=== PATIENT | female | born 1985 | race Caucasian/White ===

== ENCOUNTER 2016-12-11 06:15 | Inpatient (IN) | payer BC ==
[2016-12-11] MEDS ORDERED: METHYLERGONOVINE 0.2 MG/ML 1 ML AMP IM PRN (06:46)
[2016-12-11] MEDS ORDERED: OXYTOCIN 10 UNIT/ML 1 ML VIAL IM PRN (06:46)
[2016-12-11] MEDS ORDERED: LIDOCAINE 1% (PF) 10 MG/ML (30 ML SDV) SQ PRN (06:46)
[2016-12-11] MEDS ORDERED: TERBUTALINE 1 MG/ML VIAL SQ PRN (06:46)
[2016-12-11] MEDS ORDERED: CARBOPROST TROMETHAMINE 250 MCG/ML 1 ML AMP IM PRN (06:46)
[2016-12-11 07:00] LABS: Basophils # (A) 0.1 k/uL (0-0.2); Basophils % (A) 0 %; CH 29.7; CHCM 34.4; Eosinophils # (A) 0.2 k/uL (0-0.7); Eosinophils % (A) 1 %; HCT 36.1 % (34.0-46.0); HDW 3.08; HGB 12.3 gm/dL (11.4-16.0); Luc # (Auto) 0.22; Luc % (Auto) 2; Lymphocytes # (A) 1.6 k/uL (1.0-4.8); Lymphocytes % (A) 13 %; MCH 29.6 pg (25.0-35.0); MCHC 34.1 g/dL (31.0-37.0); MCV 86.7 fL (80.0-100.0); Mean Platelet Volume 10.2; Monocytes # (A) 0.6 k/uL (0-1.0); Monocytes % (A) 4 %; Neutrophils # (A) 10.2 k/uL (1.3-7.7); Neutrophils % (A) 80 %; RBC 4.17 m/uL (3.80-5.40); RDW 15.2 % (11.5-15.5); WBC 12.8 k/uL (3.8-10.6); WBC (Perox) 13.26
[2016-12-11] MEDS ORDERED: OXYTOCIN 20 UNITS/1000 ML NS 1,000 ML IV SCH (07:00)
[2016-12-11] MEDS: LACTATED RINGERS 1,000 ML IV SCH ×2 (07:03→15:11)
[2016-12-11] MEDS ORDERED: BUTORPHANOL 1 MG/ML 1 ML VIAL IV PRN (07:30)
--- NOTE | 2016-12-11 07:35 | P.HPOB ---
History of Present Illness H&P Date: 12/11/16 Chief Complaint: 39-0/7 weeks, previous section, induction The patient is a 31-year-old 4 para 2011 admitted at 39-0/7 weeks as established by last menstrual period and confirmed by 19 week ultrasound. She is admitted for elective induction of labor with a very favorable cervix. She carries a history of a previous section and subsequent successful vaginal after section and has requested trial for this as well. She does understand the risks and complications. Her was otherwise uncomplicated. 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 Group B strep status is negative as well. Obstetrical history 4 para 2011 with 139 week section for an abnormal 9 pound baby. She was supposedly successful at a vaginal trial of labor. She additionally had one early elective interruption of . Current statistics are listed in history present illness. EDC of was established by last menstrual period and confirmed by 19 week ultrasound. Laboratory workup demonstrates a blood type of B+ with a negative antibody screen. Rubella status is immune. The remainder of the laboratory workup was within normal limits. One hour Glucola was normal and group B strep status is negative. Gynecologic history is unremarkable with no history of any infections to include STDs. Review of Systems Review of systems is confined to history of present illness. Past Medical History Past Medical History: No Reported History Additional Past Medical History / Comment(s): Obstetric history: Primary low transverse section 2012 for failure to progress in the second stage, occiput posterior, 8 lbs. 10 oz. female infant. History of Any Multi-Drug Resistant Organisms: None Reported Additional Past Surgical History / Comment(s): heart surgery: childhood Past Anesthesia/Blood Transfusion Reactions: No Reported Reaction Past Psychological History: No Psychological Hx Reported Smoking Status: Never smoker - Past Family History Father Family Medical History: No Reported History Medications and Allergies Home Medications Medication Instructions Recorded Confirmed Type Pnv,Calcium 72/Iron/Folic Acid 1 tab PO DAILY 11/11/14 12/11/16 History [Preplus Ca-Fe 27 mg-FA 1 mg Tb] Allergies Allergy/AdvReac Type Severity Reaction Status Date / Time No Known Allergies Allergy Verified 11/11/14 03:55 Exam - Vital Signs Vital signs: Intake and Output 12/10/16 12/11/16 12/11/16 22:59 06:59 14:59 Other: Weight 81.193 kg In general, this is a well-developed, well-nourished white female in no acute distress. Her heart has a regular rhythm and rate without murmur. Her lungs are clear to auscultation bilaterally in all lilly. Her abdomen is gravid, nondistended, has normal active bowel sounds, is soft, nontender, without any palpable masses aside from uterine fundus. Her extremities are without any cyanosis, clubbing, or significant edema and are nontender to palpation bilaterally. Digital cervical examination demonstrated cervix to 3-4 cm dilated , approximately 90% effaced, the vertex in presentation at -1-2 station. Artificial rupture of membranes is carried out demonstrating clear fluid. Results Result Diagrams: 12/11/16 06:30 Abnormal Lab Results - Last 24 Hours (Table) 12/11/16 Range/Units 06:30 WBC 12.8 H (3.8-10.6) k/uL Neutrophils # 10.2 H (1.3-7.7) k/uL Assessment and Plan (1) Previous section Status: Acute (2) Term Status: Acute Plan: The patient is admitted for what amounts to an elective induction of labor. She does carry a history of previous section but with a successful following that delivery. She has requested trial for this as well. The risks and complications of vaginal after section were thoroughly discussed and she has signed consent to that effect in the office to include the risk for uterine rupture an emergency section. She has had Pitocin augmentation started and undergone artificial rupture of membranes. She will continue to have very close maternal and surveillance and expectant management will be practiced. She is a good candidate for either IV or epidural analgesia, whichever she may choose.
[2016-12-11 07:51] VITALS: BMI 32.5
[2016-12-11] MEDS ORDERED: Acetaminophen-Codeine 300-30mg TAB PO PRN ×2 (11:28)
[2016-12-11] MEDS ORDERED: HYDROCORTISONE 2.5% RECTAL CREAM 30 GM TUBE RECTAL PRN (11:28)
[2016-12-11] MEDS ORDERED: WITCH HAZEL 1 EACH MED..PAD TOPICAL PRN (11:28)
[2016-12-11] MEDS ORDERED: diphenhydrAMINE 50 MG/ML 1 ML VIAL IVP PRN ×2 (11:28)
[2016-12-11] MEDS ORDERED: diphenhydrAMINE 50 MG CAP PO PRN (11:28)
[2016-12-11] MEDS ORDERED: SIMETHICONE 80 MG CHEWABLE PO PRN (11:28)
[2016-12-11] MEDS ORDERED: LANOLIN CREAM 5 GM TUBE TOPICAL PRN (11:28)
[2016-12-11] MEDS ORDERED: diphenhydrAMINE 25 MG CAP PO PRN (11:28)
[2016-12-11] MEDS ORDERED: ACETAMINOPHEN TAB 325 MG TAB PO PRN (11:28)
[2016-12-11] MEDS ORDERED: ZOLPIDEM 5 MG TAB PO PRN (11:28)
[2016-12-11] MEDS ORDERED: BENZOCAINE SPRAY 57GM TOPICAL PRN (11:28)
--- NOTE | 2016-12-11 11:32 | P.PROBDLV ---
Vaginal Delivery Note - . Vaginal Delivery Note: The patient is a 31-year-old 4 para 2011 admitted at 39-0/7 weeks by good dating parameters. She is admitted for elective induction of labor and vaginal trial of labor after previous section having had one previous successful in the past. On admission, all signs reassuring. Her has been uncomplicated and group B strep status is negative. On labor and delivery, she had Pitocin augmentation started and underwent artificial rupture of membranes for clear fluid. She made very rapid progress through the latent and active phase of labor to complete and 0 station. She pushed over the course of 5-6 contractions to a normal spontaneous vaginal delivery, successful , of a viable 9 lbs. 9 oz. baby girl with Apgars of 9 at 1 minute and 9 at 5 minutes delivered in the direct occiput anterior position. The placenta was delivered spontaneously, intact, and grossly normal with a grossly normal, marginally inserted three-vessel cord. A small second- degree laceration was noted just right of midline, likely over the site of a previous laceration, which was repaired in standard fashion using 3-0 chromic catgut without difficulty. Estimated blood loss for the case was approximately 200 mL. There were no complications. All sponge, instrument, and needle counts were correct. Both mother and are resting comfortably in recovery.
[2016-12-11] MEDS: IBUPROFEN 600 MG TAB PO PRN ×2 (12:53→20:21)
[2016-12-11] MEDS: SENNOSIDES-DOCUSATE SODIUM 1 EACH TAB PO SCH (20:21)
[2016-12-12 00:33] VITALS: RESP 16
[2016-12-12] MEDS: SENNOSIDES-DOCUSATE SODIUM 1 EACH TAB PO SCH (07:43)
[2016-12-12] MEDS: IBUPROFEN 600 MG TAB PO PRN (07:44)
[2016-12-12 08:33] VITALS: BP 125/79; PULSE 74; TEMP 97.5
--- NOTE | 2016-12-12 11:00 | P.DS ---
Providers Date of admission: 12/11/16 06:27 Expected date of discharge: 12/12/16 Attending physician: Austen Tate Primary care physician: Dakota Michaud - Discharge Diagnosis(es) (1) Previous section Current Visit: Yes Status: Acute (2) Term Current Visit: Yes Status: Acute (3) Vaginal delivery following previous caesarean section Current Visit: Yes Status: Acute Hospital Course: The patient is a 31-year-old 4 para 2011 admitted at 39-0/7 weeks by good dating parameters perches admitted for elective induction with a very favorable cervix. She has a history of a previous section in her first followed by a successful vaginal after section in her second. She has requested vaginal trial of labor for this . As result, she had Pitocin started and underwent artificial rupture of membranes. She made rapid progress to the active phase of labor to complete and then pushed fairly quickly to a normal spontaneous vaginal delivery of a viable 9 lbs. 9 oz. baby girl, successful , with Apgars of 9 at 1 minute and 9 at 5 minutes. Her post course was unremarkable with vital signs remaining stable and her temperature was afebrile throughout. She was deemed stable for discharge by day #1 was discharged home to follow-up in the office in 6 weeks' time routinely. Discharge instructions included calling for any significantly increased bleeding or foul-smelling lochia, significantly increased fever abdominal pain, perineal complaints, breast complaints, or anything else that concerned her. She was additionally instructed to have nothing in the vagina for at least 6 weeks time to include intercourse. She understood her instructions and agrees to follow up as noted above. Maternal blood type is B+ and rubella status is immune. Procedures: #1. Pitocin induction #2. Artificial rupture of membranes #3. Normal spontaneous vaginal delivery, successful #4. Repair of perineal laceration Patient Condition at Discharge: Good Plan - Discharge Summary New Discharge Prescriptions: No Action Pnv,Calcium 72/Iron/Folic Acid [Preplus Ca-Fe 27 mg-FA 1 mg Tb] 1 tab PO DAILY Fexofenadine HCl [Viola Allergy] 60 mg PO DAILY Discharge Medication List Pnv,Calcium 72/Iron/Folic Acid [Preplus Ca-Fe 27 mg-FA 1 mg Tb] 1 tab PO DAILY 11/11/14 [History] Fexofenadine HCl [Viola Allergy] 60 mg PO DAILY 12/11/16 [History] Follow up Appointment(s)/Referral(s): Austen Tate MD [STAFF PHYSICIAN] - 6 Weeks Discharge Disposition: HOME SELF-CARE
== END 2016-12-12 12:30 | disposition home or self-care (01) | DRG 775 ==
LOC: 4FBP 06:27
PROVIDERS: ADMIT Obstetrics & Gynecology; ATTEND Obstetrics & Gynecology
PROC: 10E0XZZ Delivery of Products of Conception, External Approach (ICD-10-PCS; principal; 2016-12-11)
PROC: 0KQM0ZZ Repair Perineum Muscle, Open Approach (ICD-10-PCS; 2016-12-11)
PROC: 00HU33Z Insertion of Infusion Device into Spinal Canal, Percutaneous Approach (ICD-10-PCS; 2016-12-11)
PROC: 3E0R3CZ (ICD-10-PCS; 2016-12-11)
DX: O34.211 Maternal care for low transverse scar from previous cesarean delivery (principal); O70.1 Second degree perineal laceration during delivery; Z37.0 Single live birth; Z3A.39 39 weeks gestation of pregnancy; Z79.899 Other long term (current) drug therapy
CPT/HCPCS: 85025; 86850; 86900; 86901; 88307

== ENCOUNTER → 2020-11-01 | Outpatient (CLI) | payer BC ==
--- NOTE | 2020-11-02 11:52 | ECHOF ---
Referral Reason:R01.1 Heart murmur MEASUREMENTS -------- HEIGHT: 157.5 cm WEIGHT: 63.5 kg BP: 110/76 RVIDd: 3.1 cm (< 3.3) IVSd: 1.0 cm (0.6 - 1.1) LVIDd: 4.4 cm (3.9 - 5.3) LVPWd: 0.9 cm (0.6 - 1.1) IVSs: 1.6 cm LVIDs: 2.4 cm LVPWs: 1.3 cm LA Diam: 3.3 cm (2.7 - 3.8) LAESV Index (A-L): 24.66 ml/m Ao Diam: 2.6 cm (2.0 - 3.7) AV Cusp: 2.0 cm (1.5 - 2.6) MV EXCURSION: 19.454 mm (> 18.000) MV EF SLOPE: 110 mm/s (70 - 150) EPSS: 0.2 cm MV E Royce: 1.34 m/s MV DecT: 243 ms MV A Royce: 0.98 m/s MV E/A Ratio: 1.38 AV maxP.02 mmHg AV meanP.75 mmHg RAP: 5.00 mmHg RVSP: 32.38 mmHg FINDINGS -------- Sinus rhythm. This was a technically good study. The left ventricular size is normal. Left ventricular wall thickness is normal. Overall left vent ricular systolic function is normal with, an EF between 60 - 65 %. The right ventricle is mildly enlarged. Normal LA size by volume 22+/-6 ml/m2. The right atrium is normal in size. The atrial septal defect shunts from left to right. There is a moderate secundum ASD measuring appr oximately 1.2cm. Recommend DEANNE to further evaluate if clinically indicated. The aortic valve is bicuspid. There is mild aortic valve sclerosis. Peak/mean gradient across the Aortic Valve is 59.02mmHg / 31.75mmHg. There is moderate aortic stenosis by doppler however appear s to be only mild by planimetry with only mild aortic valve sclerosis. May conisder DEANNE if clinicall y indicated. The mitral valve leaflets are mildly thickened. There is trace to mild mitral regurgitation. Mild tricuspid regurgitation present. Right ventricular systolic pressure is normal at < 35 mmHg. Trace/mild (physiologic) pulmonic regurgitation. The aortic root size is normal. There is increased doppler velocity of the descending aorta in this patient with a known history of aortic coarctation repair. Recommend CTA if reoccurence of coarctat ion clinical concern. Normal inferior vena cava with normal inspiratory collapse consistent with estimated right atrial pre ssure of 5 mmHg. There is no pericardial effusion. CONCLUSIONS -------- 1. The left ventricular size is normal. 2. Left ventricular wall thickness is normal. 3. Overall left ventricular systolic function is normal with, an EF between 60 - 65 %. 4. The right ventricle is mildly enlarged. 5. The atrial septal defect shunts from left to right. 6. There is a moderate secundum ASD measuring approximately 1.2cm. Recommend DEANNE to further evaluate if clinically indicated. 7. The aortic valve is bicuspid. 8. There is mild aortic valve sclerosis. 9. Peak/mean gradient across the Aortic Valve is 59.02mmHg / 31.75mmHg. 10. There is moderate aortic stenosis by doppler however appears to be only mild by planimetry with o nly mild aortic valve sclerosis. May conisder DEANNE if clinically indicated. 11. The mitral valve leaflets are mildly thickened. 12. There is trace to mild mitral regurgitation. 13. Mild tricuspid regurgitation present. 14. Trace/mild (physiologic) pulmonic regurgitation. 15. The aortic root size is normal. 16. There is increased doppler velocity of the descending aorta in this patient with a known history of aortic coarctation repair. Recommend CTA if reoccurence of coarctation clinical concern. 17. There is no pericardial effusion. STAGE RIGGER: Lalita Cevallos RDCS
== END | disposition home or self-care (01) ==
LOC: RADECHMAIN 14:34
PROVIDERS: ATTEND Family Medicine
DX: I08.1 Rheumatic disorders of both mitral and tricuspid valves (principal)
CPT/HCPCS: 93306